=== PATIENT | male | born 1945 | race Caucasian/White ===

== ENCOUNTER 2018-01-11 06:16 | Day surgery (SDC) | payer OTHER ==
[2018-01-11] MEDS ORDERED: Ringers Lactate 1,000 ML IV ONE ×2 (06:55→08:42)
[2018-01-11] MEDS ORDERED: LIDOCAINE 1% MPF 2 ML AMPULE ONE (07:29)
[2018-01-11] MEDS ORDERED: PROPOFOL 200 MG/20 ML VIAL IV ONE ×2 (07:29→09:03)
[2018-01-11 09:07] VITALS: BP 152/70; TEMP 97.3; O2SAT 100
--- NOTE | 2018-01-11 09:49 | ENDO RPT ---
[address], [address] COLONOSCOPY PROCEDURE REPORT EXAM DATE: 01/11/2018 PATIENT NAME: Michel Irene MR #: [id number] BIRTHDATE: 1945 ATTENDING: Alexys Suarez MD STATUS: outpatient PHILANTHROPY OFFICER: INDICATIONS: The patient is a 72 yr old Male here for a colonoscopy due to history of polyps PROCEDURE PERFORMED: Colonoscopy MEDICATIONS: Per Anesthesia. ESTIMATED BLOOD LOSS: None CONSENT: The patient understands the risks and benefits of the procedure and understands that these risks include, but are not limited to: sedation, allergic reaction, infection, perforation and/or bleeding. Alternative means of evaluation and treatment include, among others: physical exam, x-rays, and/or surgical intervention. The patient elects to proceed with this endoscopic procedure. DESCRIPTION OF PROCEDURE: During intra-op preparation period all mechanical medical equipment was checked for proper function. Hand hygiene and appropriate measures for infection prevention was taken. Procedure, possible complications, alternatives including, but not limited to possibility of bleeding, perforation, tear, infection, sepsis, need for surgery, need for blood transfusion, were explained to the patient. After the risks, benefits and alternatives of the procedure were thoroughly explained, Informed consent was verified, confirmed and timeout was successfully executed by the treatment team. The patient was placed in the left lateral position. A digital rectal exam was performed and revealed external hemorrhoids. After appropriate level of anesthesia, the scope was passed. The [id number] ([id number]) and [id number] ([id number]) endoscope was introduced through the anus and advanced to the cecum, which was identified by transillumination from the light source, the appendix, and the ileocecal valve. The quality of the prep was good. The instrument was then slowly withdrawn as the colon was fully examined. Scope withdrawal time was . COLON FINDINGS: Small internal and external hemorrhoids were found. Spastic colon. Retroflexed views revealed no abnormalities. The scope was then completely withdrawn from the patient and the procedure terminated. ADVERSE EVENTS: There were no complications. IMPRESSIONS: 1. Small internal and external hemorrhoids 2. Spastic colon RECOMMENDATIONS: 1. follow-up: office 1-2 week(s) 2. hemorrhoidal hygiene RECALL: Return in 3 year(s) for Colonoscopy. Alexys Suarez MD eSigned: Alexys Suarez MD 01/11/2018 9:48 AM cc: Alexys Suarez M.D. CPT CODES: ICD9 CODES: PATIENT NAME: Michel Irene MR#: [id number]
== END 2018-01-11 10:00 | disposition home or self-care (01) ==
LOC: OR 06:16
PROVIDERS: ATTEND Surgery
PROC: 0DJD8ZZ Inspection of Lower Intestinal Tract, Via Natural or Artificial Opening Endoscopic (ICD-10-PCS; principal; 2018-01-11 07:30)
DX: K58.9 Irritable bowel syndrome, unspecified (principal); K64.8 Other hemorrhoids; K64.4 Residual hemorrhoidal skin tags; I10 Essential (primary) hypertension; E78.00 Pure hypercholesterolemia, unspecified; Z86.010 Personal history of colon polyps
CPT/HCPCS: 45378; J2001

== ENCOUNTER 2018-02-13 07:14 | Day surgery (SDC) | payer OTHER ==
--- NOTE | 2018-02-09 16:21 | RAD REPORT ---
EXAM DESCRIPTION: Laly Maldonado (2 Views)02/09/2018 4:11 pm CLINICAL HISTORY: High blood pressure. Preop for hernia surgery COMPARISON: May 2017 FINDINGS: The lungs appear clear of acute infiltrate. The heart is normal size IMPRESSION: No acute abnormalities displayed
[2018-02-09 16:22] LABS: Absolute Lymphocytes (CBC) 2.3 K/uL (0.7-4.9); Absolute Monocytes 0.9 K/uL (0.1-1.3); Absolute Neutrophil 3.9 K/uL (1.8-8.0); Basophils % 0.6 % (0-1.3); Eosinophils % 3.6 % (0-4.4); Hematocrit 42.6 % (39.6-49.0); MCH 35.5 pg (27.0-35.0); MCV 101.9 fL (80-100); MPV 8.3 fL (7.6-11.3); Monocytes % 12.5 % (3.3-12.3); RBC Red Blood Cell Count 4.18 M/uL (4.33-5.43)
[2018-02-09 16:33] LABS: Potassium 4.1 mmol/L (3.5-5.1)
--- NOTE | 2018-02-11 10:33 | EKG ---
Test Date: 2018-02-09 Test Time: 15:53:57 General Assistant: MIKEY MEASUREMENT RESULTS: Intervals: Rate: 60 NM: 144 QRSD: 160 QT: 424 QTc: 424 Enterprise: P: 48 NM: 144 QRS: -83 T: 49 INTERPRETIVE STATEMENTS: Normal sinus rhythm Left axis deviation Right bundle branch block Abnormal ECG No previous ECG available for comparison Electronically Signed On 02-11-18 10:27:48 CDT by Alejandro Monson
[2018-02-13] MEDS ORDERED: CEFAZOLIN/SWI 1gm 1 GM/10 ML SYR ONE (07:50)
[2018-02-13] MEDS: Ringers Lactate 1,000 ML IV ONE ×2 (08:00→08:31)
[2018-02-13] MEDS ORDERED: PROPOFOL 200 MG/20 ML VIAL IV ONE (08:30)
[2018-02-13] MEDS ORDERED: LIDOCAINE 2% MPF 5 ML VIAL ONE (08:30)
[2018-02-13] MEDS ORDERED: MIDAZOLAM HCL 2 MG/2 ML INJ ONE (08:30)
[2018-02-13] MEDS ORDERED: GLYCOPYRROLATE 0.2 MG/ML SYR ONE ×2 (08:30)
[2018-02-13] MEDS ORDERED: FENTANYL CITR 250 MCG/5 ML ONE (08:31)
[2018-02-13] MEDS ORDERED: ROCURONIUM 50 MG/5 ML VIAL IV ONE (08:31)
[2018-02-13] MEDS ORDERED: EPHEDRINE SULF 50 MG/10 ML SYR ONE (08:53)
--- NOTE | 2018-02-13 09:22 | P.BOP ---
Preoperative diagnosis: incarcerated left inguinal hernia Postoperative diagnosis: same Primary procedure: Laparoscopic repair of incarcerated left inguinal hernia with mesh [employer] Consultant: Latha Nice Estimated blood loss: <5cc Specimen: none Findings: left inguinal hernia Anesthesia: General Complications: None Implants: 3d mesh Transferred to: Recovery Room Condition: Good
[2018-02-13] MEDS ORDERED: CODEINE 30MG/APAP 300MG TAB ONE (11:40)
[2018-02-13 13:55] VITALS: BP 145/66; TEMP 97.3; O2SAT 95
--- NOTE | 2018-02-14 18:03 | OP ---
Date of Procedure: 02/13/2018 Surgeon: Alexys Suarez MD Harness Brusher: Latha Angela. Preoperative Diagnosis: Incarcerated left inguinal hernia. Postoperative Diagnosis: Incarcerated left inguinal hernia. Procedure: Laparoscopic repair of incarcerated left inguinal hernia with mesh. Estimated Blood Loss: Less than 5 cc. Specimen: None. Findings: Left inguinal hernia. Anesthesia: General plus local. Implant: A 3D mesh. Indications: This is a case of a 72-year-old patient with above diagnosis. Fully explained the bene fits, alternatives, and risks of laparoscopic versus open repair of incarcerated left inguinal hernia with mesh, which include, but are not limited to infection, bleeding, damage to adjacent structures, anesthesia complication, chronic numbness, chronic pain, testicular damage, NC, even . He also understands this may not relieve any symptoms. He might need more than one surgical intervention. He also understands the pros and cons of mesh placement since he was advised we were going to be usin g mesh in this case. He signed a consent. Understand the pros and cons. Description Of Procedure: The patient was brought to the operating room, placed in supine position. A time-out was called. Abdomen was prepped and draped in a sterile fashion. An incision was made o sherice the infraumbilical region. Incision was carried down until we found the anterior rectus sheath t hat was open on the left side. The muscle was then retracted laterally to expose the posterior rectu s sheath. The extraperitoneal space was developed with the help of blunt dissection. The balloon ti pped catheter space-maker was placed in that area and directed towards the pubic symphysis. The lapa roscope was then placed through the trocar. The balloon was inflated under direct visualization to c reate extraperitoneal space. The balloon was then removed. The camera was reintroduced once again. A 5-mm trocar was then placed after obtaining insufflation about the pubic symphysis and another one jail between the first and the second one. The preperitoneal space was further developed by expo sing the inferior epigastric vessels and keeping them anterior to the plane. Ajay's ligament was d issected laterally to the junction with the iliac veins. The dissection continued inferiorly to the iliopubic tract, avoiding damage to the femoral branch of the genitofemoral nerve and lateral femoral cutaneous nerve. The cord structures were carefully skeletonized. The hernia sac was identified an d reduced with gentle traction into the peritoneal cavity. At that moment, I proceeded to introduce a medium mesh placed over the working space. The mesh was placed along the inferior aspect of the wo rking space and overall into place covering the direct and indirect spaces. The mesh was secured in place with a SorbaFix lateral and superior to the iliopubic tract and inferomedial to the Ajay's li gament. Hemostasis was checked. No bleeding. we placed some local anesthetic to that area. At chan t moment, I proceeded to remove the trocars under direct vision and deflate the area. I closed the a nterior rectus sheath with #1 Vicryl and skin in subcuticular fashion with 3-0 chromic and Steri-Stri ps on top. Sponge count and instrument counts were correct. At the end of the case, testicles were in the scrotum. The patient was sent to recovery in stable condition. JAILYN/TWAN Voice ID: [id number] Report ID: [id number]
--- NOTE | 2018-02-14 18:06 | DS ---
Date of Discharge: 02/13/2018 Diagnosis: Incarcerated left inguinal hernia. Procedure: Laparoscopic repair of incarcerated left inguinal hernia with mesh. Disposition: Home. Activity: As tolerated. No heavy lifting. Followup: Follow up in my office in 1 week. Call for appointment on [phone]. Keep area dry for 48 hours, then may shower. Keep Steri-Strips intact. Medications: See orders. JAILYN/TWAN Voice ID: [id number] Report ID: [id number]
== END 2018-02-13 12:07 | disposition home or self-care (01) ==
LOC: OR 07:14
PROVIDERS: ATTEND Surgery
PROC: 0YU64JZ Supplement Left Inguinal Region with Synthetic Substitute, Percutaneous Endoscopic Approach (ICD-10-PCS; principal; 2018-02-13 08:30)
DX: K40.30 Unilateral inguinal hernia, with obstruction, without gangrene, not specified as recurrent (principal); I10 Essential (primary) hypertension; M19.90 Unspecified osteoarthritis, unspecified site
CPT/HCPCS: 36415; 49650; 71046; 80048; 85025; 93005; J0690; J2250